=== PATIENT | male | born 1950 | race Caucasian/White ===

== ENCOUNTER 2022-01-03 13:16 | Outpatient (CLI) | payer MEDICARE, OTHER ==
[2022-01-04 00:01] LABS: SARS-CoV-2 PCR by NAA Not Detected (NotDetected)
== END 2022-01-03 13:17 | disposition home or self-care (01) ==
LOC: LABBT 13:16
PROVIDERS: ATTEND Neurological Surgery
DX: M47.12 Other spondylosis with myelopathy, cervical region (principal); Z20.822 Contact with and (suspected) exposure to COVID-19
CPT/HCPCS: U0003; U0005

== ENCOUNTER 2022-01-08 05:28 | Day surgery (SDC) | payer MEDICARE, OTHER ==
[2022-01-03 10:57] VITALS: BMI 23.6
[2022-01-08] MEDS ORDERED: Thrombin 5000 UNITS/5 ML VIAL ONE (06:12)
[2022-01-08] MEDS ORDERED: Famotidine/PF 20 mg/2ml Vial ONE (06:16)
[2022-01-08] MEDS ORDERED: ceFAZolin (BATCH) 2 GM/100 ML BAG ONE (06:48)
[2022-01-08] MEDS ORDERED: fentaNYL Citrate/PF 100 MCG/2 ML SYRINGE ONE ×2 (06:53→07:25)
[2022-01-08] MEDS ORDERED: PHENYLEPHRINE-NS 100 MCG/ML 10 ML SYRINGE ONE (07:13)
[2022-01-08] MEDS ORDERED: Albuterol Sulfate HFA (OR ONLY) ONE ×2 (07:13→07:20)
[2022-01-08] MEDS ORDERED: Lidocaine 1% PF 5 ML VIAL ONE (07:13)
[2022-01-08] MEDS ORDERED: Ketorolac Tromethamine 30 MG/ML VIAL ONE (07:13)
[2022-01-08] MEDS ORDERED: PROPOFOL 200 MG/20 ML VIAL ONE (07:13)
[2022-01-08] MEDS ORDERED: Ondansetron PF 4 MG/2 ML Vial ONE (07:13)
[2022-01-08] MEDS ORDERED: Rocuronium Bromide 10 MG/ML (10ML VIAL) ONE (07:13)
[2022-01-08] MEDS ORDERED: ePHEDrine 50 MG/ML VIAL ONE (07:13)
[2022-01-08] MEDS ORDERED: Dexamethasone 20 MG/5 ML VIAL ONE (07:13)
[2022-01-08] MEDS ORDERED: Glycopyrrolate 0.2 MG/ML 5 ML SYRINGE ONE (07:13)
[2022-01-08] MEDS ORDERED: HYDROmorphone 2 MG/ML VIAL ONE (07:41)
[2022-01-08] MEDS ORDERED: Ondansetron PF 4 MG/2 ML Vial IVP PRN (08:51)
[2022-01-08] MEDS ORDERED: diphenhydrAMINE 25 MG CAP PO PRN (08:52)
[2022-01-08] MEDS ORDERED: diphenhydrAMINE 50 MG/ML VIAL IVP PRN (08:53)
[2022-01-08] MEDS ORDERED: Tamsulosin HCl 0.4 MG CAP PO SCH (09:00)
[2022-01-08] MEDS ORDERED: Sodium Chloride 0.9% 100 ML ONE (11:20)
[2022-01-08] MEDS ORDERED: CEFAZOLIN 2 GM VIAL ONE (11:20)
[2022-01-08] MEDS ORDERED: Ondansetron ODT 4 MG TAB ONE (12:33)
== END 2022-01-08 12:46 | disposition home or self-care (01) ==
LOC: SDC 05:28
PROVIDERS: ATTEND Neurological Surgery
PROC: 0RT30ZZ Resection of Cervical Vertebral Disc, Open Approach (ICD-10-PCS; principal; 2022-01-08)
DX: M47.12 Other spondylosis with myelopathy, cervical region (principal); M48.02 Spinal stenosis, cervical region; Z79.2 Long term (current) use of antibiotics
CPT/HCPCS: 63075; 76000; C1713 ×2; C1776 ×2; J0690; J1100; J1170; J1885; J2405; J2704; J3490; Q0162; S0028